=== PATIENT | male | born 1995 | race African-American/Black ===

== ENCOUNTER 2017-09-20 19:33 | Emergency (ER) | payer BC, SELFPAY ==
[2017-09-20] MEDS ORDERED: Ibuprofen 200 MG TAB ONE (19:49)
[2017-09-20] MEDS ORDERED: Acetaminophen 500 MG TAB ONE (19:49)
== END 2017-09-20 20:50 | disposition home or self-care (01) ==
LOC: ERS 19:33
DX: J11.1 Influenza due to unidentified influenza virus with other respiratory manifestations (principal); F17.210 Nicotine dependence, cigarettes, uncomplicated; J45.909 Unspecified asthma, uncomplicated
CPT/HCPCS: 87804; 99283